=== PATIENT | male | born 1995 | race Caucasian/White ===

== ENCOUNTER 2018-09-16 15:24 | Emergency (ER) | payer BC ==
--- NOTE | 2018-09-16 15:39 | EDPHY ---
H & P Stated Complaint: JON WITH VISUAL ISSUES SINCE THIS MORNING/JUST MOVED HERE INCREASED STRESS Time Seen by Provider: 09/16/18 15:38 HPI/ROS: HPI CHIEF COMPLAINT: Headache. HISTORY OF PRESENT ILLNESS: 22-year-old male, otherwise healthy, presents emergency room with a global frontal throbbing headache. Patient states this started around 9 o'clock this when he took ibuprofen but did not get much relief. He distally reports that he was driving today and had 30 min of double vision. He is unsure was at a 1 eye or both eyes. This is since resolved. Patient does complain of some mild blurry vision. Additionally the patient reports that he got new glasses 3 days ago. He has been adjusting to these glasses. He denies any focal numbness or tingling denies any focal weakness, denies chest pain shortness of breath, denies neck pain or fever. No eye pain. No loss of vision. Additionally the patient just moved 1 week ago from [facility] to [place]. For appointment. Patient distally reports increased stress. Past Medical History: No significant medical history Past Surgical History: No significant surgical history Social History: Smokes marijuana, denies alcohol or drugs or tobacco. Family History: Noncontributory ROS REVIEW OF SYSTEMS: 10 Systems were reviewed and negative with the exception of the elements mentioned in the history of present illness. Exam Constitutional appears well nontoxic no acute distress, triage nursing summary reviewed, vital signs reviewed, awake/alert. Eyes normal conjunctivae and sclera, EOMI, PERRLA. HENT normal inspection, atraumatic, moist mucus membranes, no epistaxis, neck supple/ no meningismus, no raccoon eyes. Respiratory clear to auscultation bilaterally, normal breath sounds, no respiratory distress, no wheezing. Cardiovascular rate normal, regular rhythm, no murmur, no edema, distal pulses normal. Gastrointestinal soft, non-tender, no rebound, no guarding, normal bowel sounds, no distension, no pulsatile mass. Genitourinary no CVA tenderness. Musculoskeletal no midline vertebral tenderness, full range of motion, no calf swelling, no tenderness of extremities, no meningismus, good pulses, neurovascularly intact. Skin pink, warm, & dry, no rash, skin atraumatic. Neurologic awake, alert and oriented x 3, AAOx3, moves all 4 extremities equally, motor intact, sensory intact, CN II-XII intact, normal cerebellar, normal vision, normal speech. Psychiatric normal mood/affect. Heme/Lymph/Immune no lymphadenopathy. Differential Diagnosis: Includes but is not limited to in a particular order: Ocular migraine, tension headache, cluster headache, intracranial bleed, brain tumor, eye strain causing headache due to new glasses. Medical Decision Making: Plan for this patient CT scan head without contrast rule out bleed, IV establishment migraine cocktail, basic blood work and re- evaluate. Re-evaluation: CT scan head without contrast negative for acute abnormality. Called to me by Dr. Samaniego. 1758: Patient re-evaluated this time is feeling much better. Headache is completely resolved. CT scan head is unremarkable Patient is neurological exam is unremarkable Blood work, CT scan reviewed. Patient feels better after migraine cocktail Most likely cause of blurry vision headache is new glasses. I recommend he follows up with his eye doctor. Has these re-evaluated. Return emergency room if there is worsening symptoms. He understands this. Source: Patient - Personal History Current Tetanus Diphtheria and Acellular Pertussis (TDAP): Yes - Medical/Surgical History Hx Asthma: No Hx Chronic Respiratory Disease: No Hx Diabetes: No Hx Cardiac Disease: No Hx Renal Disease: No Hx Cirrhosis: No Hx Alcoholism: No Hx HIV/AIDS: No Hx Splenectomy or Spleen Trauma: No Other PMH: DENIES - Social History Smoking Status: Never smoked Constitutional: Initial Vital Signs Temperature (C) 37 C 09/16/18 15:30 Heart Rate 57 L 09/16/18 15:30 Respiratory Rate 18 09/16/18 15:30 Blood Pressure 112/59 L 09/16/18 15:30 O2 Sat (%) 97 09/16/18 15:30 O2 Delivery Mode Room Air Allergies/Adverse Reactions: No Known Allergies Allergy (Unverified 09/16/18 15:29) Home Medications: Medication Instructions Recorded Acet/Caffeine/Buta Fioricet 1 each PO Q6 #10 tab 09/16/18 [Fioricet (*)] Medical Decision Making - Diagnostics Imaging Results: Imaging Impressions Head CT 09/16/18 15:46 Impression: Normal. Results called and discussed with Jose Alfredo Sebastian MD at 09/16/2018 16:35. - Data Points Laboratory Results: Laboratory Results 09/16/18 15:59 09/16/18 15:59 09/16/18 09/16/18 09/16/18 17:35 15:59 15:59 WBC 6.31 10^3/uL 10^3/uL (3.80-9.50) RBC 5.03 10^6/uL 10^6/uL (4.40-6.38) Hgb 15.2 g/dL g/dL (13.7-17.5) Hct 43.2 % % (40.0-51.0) MCV 85.9 fL fL (81.5-99.8) MCH 30.2 pg pg (27.9-34.1) MCHC 35.2 g/dL g/dL (32.4-36.7) RDW 11.6 % % (11.5-15.2) Plt Count 166 10^3/uL 10^3/uL (150-400) MPV 11.4 fL fL (8.7-11.7) Neut % (Auto) 53.4 % % (39.3-74.2) Lymph % (Auto) 38.2 % % (15.0-45.0) [place] % (Auto) 6.8 % % (4.5-13.0) Eos % (Auto) 1.0 % % (0.6-7.6) Baso % (Auto) 0.3 % % (0.3-1.7) Nucleat RBC Rel Count 0.0 % % (0.0-0.2) Absolute Neuts (auto) 3.37 10^3/uL 10^3/uL (1.70-6.50) Absolute Lymphs (auto) 2.41 10^3/uL 10^3/uL (1.00-3.00) Absolute Monos (auto) 0.43 10^3/uL 10^3/uL (0.30-0.80) Absolute Eos (auto) 0.06 10^3/uL 10^3/uL (0.03-0.40) Absolute Basos (auto) 0.02 10^3/uL 10^3/uL (0.02-0.10) Absolute Nucleated RBC 0.00 10^3/uL 10^3/uL (0-0.01) Immature Gran % 0.3 % % (0.0-1.1) Immature Gran # 0.02 10^3/uL 10^3/uL (0.00-0.10) Sodium 141 mEq/L mEq/L (135-145) Potassium 3.9 mEq/L mEq/L (3.3-5.0) Chloride 107 mEq/L mEq/L (97-110) Carbon Dioxide 25 mEq/l mEq/l (22-31) Anion Gap 9 mEq/L mEq/L (6-14) BUN 8 mg/dL mg/dL (7-23) Creatinine 0.8 mg/dL mg/dL (0.7-1.3) Estimated GFR > 60 Glucose 99 mg/dL mg/dL (70-100) Calcium 9.4 mg/dL mg/dL (8.5-10.4) Urine Opiates Screen NEGATIVE (NEGATIVE) Urine Barbiturates NEGATIVE (NEGATIVE) Ur Phencyclidine Scrn NEGATIVE (NEGATIVE) Ur Amphetamine Screen NEGATIVE (NEGATIVE) U Benzodiazepines Scrn NEGATIVE (NEGATIVE) Urine Cocaine Screen NEGATIVE (NEGATIVE) U Marijuana (THC) Screen NON-NEGATIVE H (NEGATIVE) Medications Given: Discontinued Medications Dexamethasone (Decadron Injection) 10 mg IVP EDNOW ONE Stop: 09/16/18 15:47 Last Admin: 09/16/18 15:59 Dose: 10 mg Diphenhydramine HCl (Benadryl Injection) 50 mg IVP EDNOW ONE Stop: 09/16/18 15:47 Last Admin: 09/16/18 15:59 Dose: 50 mg Sodium Chloride (Ns) 1,000 mls @ 0 mls/hr IV ONCE ONE; Wide Open PRN Reason: Protocol Stop: 09/16/18 15:45 Last Admin: 09/16/18 15:58 Dose: 1,000 mls Ketorolac Tromethamine (Toradol) 30 mg IVP EDNOW ONE Stop: 09/16/18 15:47 Last Admin: 09/16/18 15:59 Dose: 30 mg Metoclopramide HCl (Reglan Injection) 10 mg IVP EDNOW ONE Stop: 09/16/18 15:47 Last Admin: 09/16/18 15:58 Dose: 10 mg Departure - Departure Disposition: Home, Routine, Self-Care Clinical Impression: Headache Qualifiers: Headache type: unspecified Headache chronicity pattern: acute headache Intractability: intractable Qualified Code(s): R51 - Headache Condition: Good Instructions: Acute Headache (ED) Additional Instructions: 1. Drink lots of fluids. 2. Rest. 3. Please follow up with your eye doctor. Referrals: BERNADETTE LONG [Other] - As per Instructions [facility] [Clinic] - As per Instructions Prescriptions: Acet/Caffeine/Buta Fioricet [Fioricet (*)] 1 each PO Q6 #10 tab
[2018-09-16] MEDS ORDERED: NS 1,000 ML IV ONE (15:44)
[2018-09-16] MEDS ORDERED: KETOROLAC 30 MG/1 ML SDV IVP ONE (15:46)
[2018-09-16] MEDS ORDERED: METOCLOPRAMIDE 10 MG/2 ML VIAL IVP ONE (15:46)
[2018-09-16] MEDS ORDERED: DEXAMETHASONE 10 MG/ML VIAL IVP ONE (15:46)
[2018-09-16] MEDS ORDERED: DEXAMETHASONE 4 MG/ML VIAL ONE (15:56)
[2018-09-16 16:07] LABS: PLATELET COUNT 166 10^3/uL (150-400)
[2018-09-16 18:11] VITALS: BP 145/84
== END 2018-09-16 18:10 | disposition home or self-care (01) ==
DX: R51 Headache (principal); H53.8 Other visual disturbances; E86.9 Volume depletion, unspecified
CPT/HCPCS: 80305; 96374; J1100; J1200; J1885; J2765

== ENCOUNTER → 2018-10-18 | Outpatient (CLI) | payer BC | LOC: BMCIMAGING 12:11 | PROVIDERS: ATTEND Emergency Medicine | DX: R22.31 Localized swelling, mass and lump, right upper limb (principal) ==